=== PATIENT | male | born 1975 | race Caucasian/White ===

== ENCOUNTER 2023-03-15 10:22 | Day surgery (SDC) | payer OTHER ==
[~2023-03-15] VITALS: Ht 192 cm; Wt 145.1 kg
[2023-03-15] MEDS ORDERED: diphenhydrAMINE 50 MG/ML VIAL ONE (11:24)
[2023-03-15] MEDS ORDERED: fentaNYL citrate 0.05 MG/ML VIAL ONE ×2 (11:25)
[2023-03-15] MEDS ORDERED: MIDAZOLAM 2 MG/2 ML VIAL ONE ×3 (11:25→11:48)
[2023-03-15] MEDS ORDERED: LIDOCAINE 2% 100 MG/5 ML UJET TP ONE (11:26)
[2023-03-15] MEDS ORDERED: MIDAZOLAM 5 MG/5 ML VIAL ONE (11:29)
[2023-03-15] MEDS ORDERED: SIMETHICONE 40 MG/0.6 ML ONE (11:52)
[2023-03-15] MEDS ORDERED: fentaNYL citrate 0.05 MG/ML VIAL IVP ONE (12:00)
[2023-03-15] MEDS ORDERED: MIDAZOLAM 2 MG/2 ML VIAL IVP ONE (12:00)
[2023-03-15] MEDS ORDERED: diphenhydrAMINE 50 MG/ML VIAL IVP ONE (12:00)
== END 2023-03-15 12:47 | disposition home or self-care (01) ==
LOC: MDS 10:22 → MMU 10:24 → MDS 12:47
PROVIDERS: ATTEND Internal Medicine Gastroenterology
DX: Z12.11 Encounter for screening for malignant neoplasm of colon (principal); D12.4 Benign neoplasm of descending colon; I10 Essential (primary) hypertension; J44.9 Chronic obstructive pulmonary disease, unspecified; M32.9 Systemic lupus erythematosus, unspecified; Z79.899 Other long term (current) drug therapy
CPT/HCPCS: 45385; 88305; J1200; J2250; J3010